=== PATIENT | female | born 1975 | race Caucasian/White ===

== ENCOUNTER → 2016-05-13 | Outpatient (REF) | LOC: ZLAB.WCH 11:36 | DX: Z01.89 Encounter for other specified special examinations (principal) ==

== ENCOUNTER → 2017-03-18 | Outpatient (CLI) | payer BC | LOC: ZCOL.LAB 17:10 | DX: H69.83 Other specified disorders of Eustachian tube, bilateral (principal) ==

== ENCOUNTER 2018-09-12 19:33 | Emergency (ER) | payer BC ==
[~2018-09-12] VITALS: Ht 172.7 cm; Wt 63.6 kg
[2018-09-12 19:38] VITALS: BP 130/77; TEMP 98.3
[2018-09-12] MEDS ORDERED: SSD25 GM TP (20:06)
[2018-09-12] MEDS ORDERED: NORCO 325 MG-51 TAB PO (20:06)
[2018-09-12 20:31] VITALS: PULSE 89
== END 2018-09-12 20:32 | disposition home or self-care (01) ==
LOC: COL.ER 19:33
DX: T23.231A Burn of second degree of multiple right fingers (nail), not including thumb, initial encounter (principal); T23.232A Burn of second degree of multiple left fingers (nail), not including thumb, initial encounter; T65.91XA Toxic effect of unspecified substance, accidental (unintentional), initial encounter; Y92.009 Unspecified place in unspecified non-institutional (private) residence as the place of occurrence of the external cause

== ENCOUNTER → 2020-10-24 | Outpatient (CLI) | payer BC ==
[~2020-10-24] MED LIST: NORCO 325 MG-51 TAB PO; SSD25 GM TP
== END ==
LOC: ZLAB.ENT 15:12
DX: H92.13 Otorrhea, bilateral (principal)